=== PATIENT | female | born 1990 | race American Indian/Alaskan Native ===

== ENCOUNTER 2019-01-30 10:24 | Emergency (ER) | payer MEDICAID ==
[2019-01-30 10:55] VITALS: BP 106/59
[2019-01-30] MEDS ORDERED: DECADRON IM ONE (11:30)
--- NOTE | 2019-01-30 11:32 | Emergency Department Report ---
Minor Respiratory - HPI Chief Complaint: Upper Respiratory Infection Stated Complaint: COUGH Time Seen by Provider: 01/30/19 11:14 Duration: 3 Days Pain Location: Chest Severity: mild Minor Respiratory: Yes Able to Tolerate Fluids, Yes Cough, Yes Sick Contacts, No Rhinorrhea, No Sore Throat, No Ear Pain, No Hemoptysis, No Chest Pain, No Shortness of Breath, No Fever Other History: Patient is a pleasant 28-year-old -[place] female comes to the ER today complaining of cold-like symptoms since last Monday. She denies fever. She denies sputum. She denies chills. There is no chest pain or shortness of breath. No ear pain no throat pain. Patient comes to the ER with her small child with similar symptoms. Past medical history none. Home medications none ED Review of Systems ROS: Stated complaint: COUGH Other details as noted in HPI Comment: All other systems reviewed and negative Constitutional: see HPI Eyes: as per HPI. denies: eye pain ENT: as per HPI Respiratory: see HPI, cough Cardiovascular: denies: dyspnea on exertion Gastrointestinal: denies: vomiting Genitourinary: denies: urgency Musculoskeletal: denies: back pain Skin: denies: as per HPI Neurological: denies: headache Psychiatric: denies: depression Hematological/Lymphatic: denies: easy bleeding ED Past Medical Hx - Past Medical History Previous Medical History?: No Additional medical history: Scabies - Surgical History Past Surgical History?: Yes Additional Surgical History: - Social History Smoking Status: Current Every Day Smoker Substance Use Type: Alcohol, Marijuana - Medications Home Medications: Home Medications Medication Instructions Recorded Confirmed Last Taken Type Amoxicillin 500 mg PO BID #20 capsule 01/30/19 Unknown Rx Benzonatate [Tessalon Perles] 100 mg PO Q12H PRN #20 capsule 01/30/19 Unknown Rx Cetirizine HCl [ZyrTEC] 10 mg PO DAILY #30 capsule 01/30/19 Unknown Rx Fluticasone [Flonase] 1 spray NS QDAY #1 bottle 01/30/19 Unknown Rx Minor Respiratory Exam - Exam General: Vital signs noted. No distress. Alert and acting appropriately. HEENT: Yes Moist Mucous Membranes, Yes Rhinorrhea, No Pharyngeal Erythema, No Pharyngeal Exudates, No Conjuctival Injection, No Frontal Tenderness, No Maxillary Tenderness Ear: Neither TM Bulge, Neither TM Erythema, Neither EAC Pain, Neither EAC Discharge Neck: Yes Supple, No Adenopathy Lungs: Yes Good Air Exchange, Yes Cough (HR 90 ON EXAM), No Wheezes, No Ronchi, No Stridor, No Labored Respirations, No Retractions, No Use of Accessory Muscles, No Other Abnormal Lung Sounds Heart: Yes Regular, No Murmur Abdomen: Yes Normal Bowel Sounds, No Tenderness, No Peritoneal Signs Skin: No Rash, No Edema Neurologic: Alert and oriented, no deficits. Musculoskeletal: Unremarkable. ED Course Vital Signs 01/30/19 10:53 Temperature 98.1 F Pulse Rate 93 H Respiratory 18 Rate Blood Pressure 106/59 O2 Sat by Pulse 99 Oximetry ED Medical Decision Making - Medical Decision Making SIMPLE URTI COLD LIKE SYMPTOMS NO FEVER NO SPUTUM LIKELY ALLERGIC COMPONENT Patient has been sent home with symptom relief. However, she's been given a prescription for antibiotics that she's been instructed not to start taking for 48 hours and to only start at that point if she is not feeling better or worsening. Critical care attestation.: If time is entered above; I have spent that time in minutes in the direct care of this critically ill patient, excluding procedure time. ED Disposition Clinical Impression: Viral respiratory illness Disposition: DC-01 TO HOME OR SELFCARE Is pt being admited?: No Does the pt Need Aspirin: No Condition: Stable Instructions: Upper Respiratory Infection (ED) Additional Instructions: REST HYDRATE WELL WITH WATER MEDS ORDERED TODAY START AMOX IN 48 HOURS IF YOU ARE NOT FEELING BETTER OR IF YOU ARE WORSENING FOLLOW UP PCP REFERRAL BELOW MOTRIN OR TYLENOL FOR PAIN OR FEVER DIET TOLERATED ACTIVITY TOLERATED Prescriptions: Amoxicillin 500 mg PO BID #20 capsule Fluticasone [Flonase] 1 spray NS QDAY #1 bottle Benzonatate [Tessalon Perles] 100 mg PO Q12H PRN #20 capsule PRN Reason: Cough Cetirizine HCl [ZyrTEC] 10 mg PO DAILY #30 capsule Referrals: [facility] [Outside] - 3-5 Days Time of Disposition: 11:30
== END 2019-01-30 11:40 | disposition home or self-care (01) ==
LOC: ED 10:24
DX: J98.8 Other specified respiratory disorders (principal); F17.200 Nicotine dependence, unspecified, uncomplicated; F12.10 Cannabis abuse, uncomplicated; B97.89 Other viral agents as the cause of diseases classified elsewhere
CPT/HCPCS: 96372; 99282; J1100

== ENCOUNTER 2019-10-21 14:37 | Emergency (ER) | payer MEDICAID ==
--- NOTE | 2019-10-21 14:51 | Emergency Department Report ---
Blank Doc - Documentation Documentation: 29-year-old female that presents with URI symptoms. This initial assessment/diagnostic orders/clinical plan/treatment(s) is/are subject to change based on patient's health status, clinical progression and re- assessment by fellow clinical providers in the ED. Further treatment and workup at subsequent clinical providers discretion. Patient/guardians urged not to elope from the ED as their condition may be serious if not clinically assessed and managed. Initial orders include: 1- Patient sent to [facility] for further evaluation and treatment 2- CXR
--- NOTE | 2019-10-21 15:33 | XRay Report ---
CHEST 2 VIEWS INDICATION / CLINICAL INFORMATION: cough. COMPARISON: None available. FINDINGS: SUPPORT DEVICES: None. HEART / MEDIASTINUM: No significant abnormality. LUNGS / PLEURA: No significant pulmonary or pleural abnormality. No pneumothorax. ADDITIONAL FINDINGS: No significant additional findings. IMPRESSION: 1. No acute finding. Signer Name: Toby Valencia MD Signed: 10/21/2019 3:29 PM Workstation Name: [id number]
--- NOTE | 2019-10-21 17:00 | Emergency Department Report ---
Chief Complaint: Upper Respiratory Infection Stated Complaint: COLD/CANT EAT Time Seen by Provider: 10/21/19 14:50 - HPI History of Present Illness: 29-year-old female that presents with URI symptoms for 1 week. She reports that she has an appetite but everything tastes nasty. Patient has taken nothing for her cold symptoms because everything tastes nasty. Patient admits to a cough no fever or headache. - Exam Vital Signs: Vital Signs 10/21/19 14:50 Temperature 98.4 F Pulse Rate 69 Respiratory 18 Rate Blood Pressure 105/70 O2 Sat by Pulse 99 Oximetry Physical Exam: Gen: alert oriented NAD Cardic: regular rate and rhythm no murmurs appreciated Resp: Clear to auscultation bilateral no wheezing no rales or rhonchi. Abdomen: Soft nontender nondistended normal bowel sounds. Mini neuro: strengh 4/5 all extrimities, Alert and oriented time 3 Crainal nerve II-IIX intact MSE screening note: Focused history and physical exam performed. Due to findings the following was ordered: Chest x-ray is negative. Discussed with patient she needs to take [id number] medications to treat her symptoms. Discussed the patient is to increase her appetite advance her diet as tolerated. ED Disposition for MSE Disposition: Z MED SCREENING EXAM-LEFT Is pt being admited?: No Does the pt Need Aspirin: No Condition: Stable Instructions: Viral Syndrome (ED) Additional Instructions: Patient to take [id number] medications to treat her symptoms. Discussed the patient is to increase her appetite advance her diet as tolerated. Referrals: [facility] [Outside] - 3-5 Days
[2019-10-21 17:08] VITALS: BP 103/63
== END 2019-10-21 17:06 | disposition left against medical advice (07) ==
LOC: ED 14:37
DX: J06.9 Acute upper respiratory infection, unspecified (principal); R63.0 Anorexia
CPT/HCPCS: 71046

== ENCOUNTER 2020-04-08 22:05 | Outpatient (CLI) | payer MEDICAID ==
[2020-04-08 22:55] VITALS: BP 112/58
[2020-04-08] MEDS ORDERED: LACTATED RINGERS 1,000 ML IV ONE (23:06)
[2020-04-08] MEDS ORDERED: ACETAMINOPHEN 500 MG TAB PO ONE (23:46)
[2020-04-09 00:41] LABS: Basophils % (Auto) 0.2 % (0.0-1.8); Eosinophils # (Auto) 0.1 K/mm3 (0.0-0.4); Hematocrit 29.4 % (30.3-42.9); Lymphocytes # (Auto) 1.9 K/mm3 (1.2-5.4); Lymphocytes % (Auto) 18.2 % (13.4-35.0); Mean Corpuscular HGB Conc 34 % (30-34); Mean Corpuscular Volume 81 fl (79-97); Monocytes # (Auto) 0.6 K/mm3 (0.0-0.8); Monocytes % (Auto) 5.8 % (0.0-7.3); Platelet Count 163 K/mm3 (140-440); Red Blood Count 3.62 M/mm3 (3.65-5.03); Red Cell Distribution Width 13.7 % (13.2-15.2)
--- NOTE | 2020-04-09 01:05 | Ultrasound Report ---
Examination: Ultrasound Obstetrical Limited, 04/09/2020 INDICATION: Evaluate well being and cervical length. COMPARISON: No relevant prior studies are available for comparison. FINDINGS: There is a single living intrauterine with the head in the transverse position with head to the maternal right. The heart rate is 153 beats per minute. The cervix has a funneled appearance and measures 1.6 cm in length. IMPRESSION: Limited obstetrical ultrasound with details given above. Signer Name: Yisel Sheppard MD Signed: 04/09/2020 1:01 AM Workstation Name: [email or web address]
[2020-04-09 01:10] LABS: Hepatitis C Virus Antibody Non-Reactive (NonReactive)
[2020-04-09] MEDS ORDERED: LACTATED RINGERS 1,000 ML IV ONE (01:33)
[2020-04-09 01:36] LABS: Bilirubin,Urine NEG (Negative); Blood,Urine LG (Negative); Color,Urine Straw (Yellow); Mucus,Urine FEW /HPF; Protein,Urine <15 mg/dL mg/dL (Negative); Urobilinogen,Urine < 2.0 mg/dL (<2.0)
[2020-04-09 01:44] LABS: Amphetamine Screen,Urine PRESUMPTIVE NEGATIVE; Benzodiazepines Screen,Urine PRESUMPTIVE NEGATIVE; Cannabinoid Screen,Urine PRESUMPTIVE NEGATIVE; Cocaine Screen,Urine PRESUMPTIVE NEGATIVE; Methadone Screen,Urine PRESUMPTIVE NEGATIVE; Opiate Screen,Urine PRESUMPTIVE NEGATIVE
== END 2020-04-09 03:25 | disposition home or self-care (01) ==
LOC: TRG 22:05 → APU 22:09 → TRG 04-09 03:25
PROVIDERS: ATTEND Obstetrics & Gynecology
DX: O26.852 Spotting complicating pregnancy, second trimester (principal); O62.9 Abnormality of forces of labor, unspecified; O99.332 Smoking (tobacco) complicating pregnancy, second trimester; F17.200 Nicotine dependence, unspecified, uncomplicated; Z3A.20 20 weeks gestation of pregnancy
CPT/HCPCS: 36415; 59025; 76815; 80307; 81001; 85025; 86592; 86706; 86762; 86803; 86850; 86900; 86901; 87086; 87806; 96360; J7120; 96361

== ENCOUNTER 2020-04-09 16:24 | Inpatient (IN) | payer MEDICAID ==
[2020-04-09] MEDS ORDERED: DOCUSATE SODIUM 100 MG CAP PO PRN (16:42)
[2020-04-09] MEDS ORDERED: ACETAMINOPHEN 325 MG TAB PO PRN ×2 (16:42→23:21)
[2020-04-09] MEDS ORDERED: ONDANSETRON 4 MG/2 ML INJ IV PRN (16:42)
[2020-04-09] MEDS ORDERED: LACTATED RINGERS 1,000 ML IV SCH (17:00)
[2020-04-09] MEDS ORDERED: fentaNYL 100 MCG/2 ML INJ IV ONE ×2 (17:17→17:20)
--- NOTE | 2020-04-09 17:22 | History and Physical Report ---
History of Present Illness Date of examination: 04/09/20 (pt arrived by EMS c/o severe pain and vaginal bleeding) History of present illness: Pt states she has been bleeding and spotting since having sex on Monday. Was in Triage overnight and sent home. States pain got worse and bleeding more Called 911 to come in. EDC Confirmation: 08/21/2020 Gestational Age: 17 3/7 weeks Past History : 4 Term Births: 2 Premature Births: 0 Living Children: 2 Para: 2 Mult. Births: 0 Prev : 2 Aborta: 1 Elect. Ab: 0 Spont. Ab: 1 Ectopics: 0 # 1 Delivery date: 08/07/2006 Weeks Gestation: 41 Delivery type: Hours of labor: 20 Anesthesia type: epidural Delivery location: [place] Infant Sex: Male weight: 8-9 Name: Aubrey Comments: Failed induction # 2 Delivery date: 2014 Weeks Gestation: 8 Delivery type: SAB Comments: No D&C # 3 Delivery date: 12/30/2016 Weeks Gestation: 41 Delivery type: Repeat section Anesthesia type: spinal Delivery location: [place] Infant Sex: Female weight: 8-? Name: Rob Past Medical History: TOA hospitalized as teenager Past Surgical History: (2005) (2016) Family History Summary: Other Family Member - Has No Family History of Ovarvian Cancer - Entered On: 03/16/2020 Other Family Member - Has No Family History of Colon Cancer - Entered On: 03/16/2020 Other Family Member - Has No Family History of Breast Cancer - Entered On: 03/16/2020 Other Family Member - Has Family History of CVA or Stroke - Entered On: 03/16/2020 Social History: Marital Status: Single Children: 2 Occupation: Unemployed Smoking History: Patient currently smokes every day. 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 Infection History Hx of STD: gonorrhea HIV Risk Eval: no Hepatitis B Risk Eval: low risk Personal hx. of genital herpes: no Infection History Comments: Hospitalized for TOAs Genetic History Congenital Heart Defect: Mom: no Dad: no Nikolai Disease: Mom: no Dad: no Thalassemia Mom: no Dad: no Neural Tube Defect Mom: no Dad: no Down's Syndrome Mom: no Dad: no Cesar-Sachs Mom: no Dad: no Sickle Cell Disease/Trait Mom: no Dad: no Hemophilia Mom: no Dad: no Muscular Dystrophy Mom: no Dad: no Cystic Fibrosis Mom: no Dad: no [place] Chorea Mom: no Dad: no Mental Retardation Mom: no Dad: no Fragile X Mom: no Dad: no Other Genetic/Chromosomal Disorder Mom: no Dad: no Child w/other defect Mom: no Dad: no Enviromental Exposures Xray Exposure: no Medication, drug, or alcohol use since LMP: no Chemical/Other Exposure: no Exposure to Cat Liter: no Active Medications: None Current Allergies (reviewed today): No known allergies Past History - Obstetrical History Expected Date of Delivery: 08/21/20 Actual Gestation: 20 Week(s) 6 Day(s) : 4 Para: 2 (c/s X 2) Hx # Term Pregnancies: 2 Number of Pregnancies: 0 Spontaneous Abortions: 1 Induced : 0 Number of Living Children: 2 Medications and Allergies Allergies Allergy/AdvReac Type Severity Reaction Status Date / Time No Known Allergies Allergy Verified 01/30/19 10:26 Home Medications Medication Instructions Recorded Confirmed Last Taken Type Amoxicillin 500 mg PO BID #20 capsule 01/30/19 Unknown Rx Benzonatate [Tessalon Perles] 100 mg PO Q12H PRN #20 capsule 01/30/19 Unknown Rx Cetirizine HCl [ZyrTEC] 10 mg PO DAILY #30 capsule 01/30/19 Unknown Rx Fluticasone [Flonase] 1 spray NS QDAY #1 bottle 01/30/19 Unknown Rx Active Meds: Active Medications Acetaminophen (Tylenol) 650 mg PO Q4H PRN PRN Reason: Pain MILD(1-3)/Fever >100.5/CARDOZA Docusate Sodium (Colace) 100 mg PO Q12H PRN PRN Reason: Constipation Fentanyl (Sublimaze) 50 mcg IV ONCE ONE Stop: 04/09/20 17:18 Lactated Ringer's (Lactated Ringers) 1,000 mls @ 125 mls/hr IV DIRECT DEVANTE Multivitamins/Iron/Calcium ( Vitamin) 1 each PO QDAY DEVANTE Ondansetron HCl (Zofran) 4 mg IV Q6H PRN PRN Reason: Nausea And Vomiting - Vital Signs Vital signs: Vital Signs Temp Resp 98.5 F 20 04/09/20 17:03 04/09/20 17:03 Temp Pulse Resp BP Pulse Ox 98.5 F 87 20 115/75 04/09/20 17:03 04/09/20 17:06 04/09/20 17:03 04/09/20 17:06 - Physical Exam Breasts: Positive: deferred Cardiovascular: Regular rate, Normal S1, Normal S2 Lungs: Positive: Clear to auscultation Abdomen: Positive: normal appearance, soft, normal bowel sounds. Negative: distention, tenderness Genitourinary (Female): Positive: other (vaginal bleeding) Vulva: both: normal Vagina: Positive: normal moisture. Negative: discharge Cervix: Negative: lesion, discharge Uterus: Positive: normal size, normal contour Adnexa: both: normal Anus/Rectum: Positive: normal perianal skin, heme negative. Negative: rectal mass, hemorrhoids Extremities: Positive: normal Deep Tendon Reflex Grade: Normal +2 - Obstetrical FHR: auscultation normal Uterine Contraction Monitor Mode: External Cervical Dilatation: 1 (no presenting part palpated; stat US ordered) Cervical Effacement Percentage: 90 station: -5 Uterine Contraction Pattern: Irregular Uterine Tone Measurement Phase: Resting Uterine Contraction Intensity: Strong/Firm Results All other labs normal. all IOB labs drawn UDS Assessment and Plan 30yo @ 21 weeks Bleeding since Monday that worsened over the last several hours and she began to have severe pain. Prev c/s X [address] orders in EMR Dr Dhillon aware of pt. - Patient Problems (1) Cannabis abuse Onset Date: ~04/09/20 Current Visit: Yes Status: Acute Plan to address problem: UDS negative (2) Vaginal bleeding in Onset Date: ~04/09/20 Current Visit: Yes Status: Acute Plan to address problem: US done at bedside BOW in vagina Cervix 3 cm Vertex on cervix No evidence of abruption (3) 21 weeks gestation of Onset Date: ~04/09/20 Current Visit: Yes Status: Acute Plan to address problem: Discussed with pt the inevitable delivery and that due to GA baby is not expected to survive. Pt crying and c/o severe pain. IV meds given Will bolus for epidural
[2020-04-09 17:45] LABS: Bilirubin,Urine NEG (Negative); Blood,Urine NEG (Negative); Color,Urine Straw (Yellow); Protein,Urine <15 mg/dL mg/dL (Negative); Urobilinogen,Urine < 2.0 mg/dL (<2.0); WBC,Urine < 1.0 /HPF (0.0-6.0)
[2020-04-09] MEDS ORDERED: OXYTOCIN 20 UNIT/1000ML DRIP 20,000 MILLIUNITS/1,000 ML BAG IV ONE ×2 (17:50→21:13)
[2020-04-09 17:52] LABS: Amphetamine Screen,Urine PRESUMPTIVE NEGATIVE; Benzodiazepines Screen,Urine PRESUMPTIVE NEGATIVE; Cannabinoid Screen,Urine PRESUMPTIVE NEGATIVE; Cocaine Screen,Urine PRESUMPTIVE NEGATIVE; Methadone Screen,Urine PRESUMPTIVE NEGATIVE; Opiate Screen,Urine PRESUMPTIVE NEGATIVE
[2020-04-09] MEDS ORDERED: BUTORPHANOL 2 MG/1 ML INJ IV PRN (18:26)
[2020-04-09 18:28] LABS: Basophils % (Auto) 0.2 % (0.0-1.8); Eosinophils % (Auto) 0.2 % (0.0-4.3); Hematocrit 31.6 % (30.3-42.9); Hemoglobin 10.5 gm/dl (10.1-14.3); Mean Corpuscular HGB Conc 33 % (30-34); Mean Corpuscular Volume 82 fl (79-97); Monocytes # (Auto) 0.5 K/mm3 (0.0-0.8); Monocytes % (Auto) 4.5 % (0.0-7.3); Platelet Count 165 K/mm3 (140-440); Red Blood Count 3.86 M/mm3 (3.65-5.03); Red Cell Distribution Width 13.7 % (13.2-15.2)
[2020-04-09 18:50] LABS: Alanine Aminotransferase 9 units/L (7-56); Albumin 3.8 g/dL (3.9-5); BUN/Creatinine Ratio 15; Blood Urea Nitrogen 6 mg/dL (7-17); Hemolysis Index 3
[2020-04-09] MEDS ORDERED: hydrALAZINE 20 MG/1 ML INJ IV ONE (18:54)
[2020-04-09 18:55] LABS: Hepatitis C Virus Antibody Non-Reactive (NonReactive)
[2020-04-09] MEDS ORDERED: ePHEDrine SULFATE 50 MG/1 ML INJ ONE (19:11)
[2020-04-09] MEDS ORDERED: DEXMEDETOMIDINE 200 MCG/2 ML VIAL IV ONE (19:11)
--- NOTE | 2020-04-09 19:13 | Ultrasound Report ---
ULTRASOUND OBSTETRIC Indication: bleeding @ 21weeks Findings: There is a single intrauterine . BPD = 4.7 cm = 20 weeks, 2 day(s). Head circumference = 18.2 cm = 20 weeks, 4 day(s). Abdominal circumference = 16.1 cm = 21 weeks, 1 day(s). Femur length = 3.5 cm = 21 weeks, 0 day(s). Overall estimated sonographic age = 20 weeks, 5 day(s). heart rate is 143 beats per minute. Estimated weight is 394 grams position is cephalic. Cervix appears open with bulging sec. movement is present. Placenta is anterior and grade 0 . Amniotic fluid volume appears normal. Maternal adnexa appear normal. Impression: 1. Single living intrauterine with estimated sonographic age of 20 weeks, 5 day(s). 2. Cervix is open with a bulging gestational sac. Signer Name: Tylor Wong MD Signed: 04/09/2020 7:09 PM Workstation Name: [id number]
--- NOTE | 2020-04-09 19:22 | Progress Note ---
Assessment and Plan Anesthesia called for epidural SVE 5,100, - Patient Problems (1) Cannabis abuse Onset Date: ~04/09/20 Current Visit: Yes Status: Acute (2) Vaginal bleeding in Onset Date: ~04/09/20 Current Visit: Yes Status: Acute (3) 21 weeks gestation of Onset Date: ~04/09/20 Current Visit: Yes Status: Acute Subjective - Subjective Date of service: 04/09/20 (pt requests epidural) Principal diagnosis: IUP @ 21 weeks inevitable delivery Interval history: Pt states she has been bleeding and spotting since having sex on Monday. Was in Triage overnight and sent home. States pain got worse and bleeding more Called 911 to come in. EDC Confirmation: 08/21/2020 Gestational Age: 17 3/7 weeks Past History : 4 Term Births: 2 Premature Births: 0 Living Children: 2 Para: 2 Mult. Births: 0 Prev : 2 Aborta: 1 Elect. Ab: 0 Spont. Ab: 1 Ectopics: 0 # 1 Delivery date: 08/07/2006 Weeks Gestation: 41 Delivery type: Hours of labor: 20 Anesthesia type: epidural Delivery location: [place] Infant Sex: Male weight: 8-9 Name: Aubrey Comments: Failed induction # 2 Delivery date: 2014 Weeks Gestation: 8 Delivery type: SAB Comments: No D&C # 3 Delivery date: 12/30/2016 Weeks Gestation: 41 Delivery type: Repeat section Anesthesia type: spinal Delivery location: [place] Infant Sex: Female weight: 8-? Name: Rob Past Medical History: TOA hospitalized as teenager Past Surgical History: (2005) (2016) Family History Summary: Other Family Member - Has No Family History of Ovarvian Cancer - Entered On: 03/16/2020 Other Family Member - Has No Family History of Colon Cancer - Entered On: 03/16/2020 Other Family Member - Has No Family History of Breast Cancer - Entered On: 03/16/2020 Other Family Member - Has Family History of CVA or Stroke - Entered On: 03/16/2020 Social History: Marital Status: Single Children: 2 Occupation: Unemployed Smoking History: Patient currently smokes every day. 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 Infection History Hx of STD: gonorrhea HIV Risk Eval: no Hepatitis B Risk Eval: low risk Personal hx. of genital herpes: no Infection History Comments: Hospitalized for TOAs Genetic History Congenital Heart Defect: Mom: no Dad: no Nikolai Disease: Mom: no Dad: no Thalassemia Mom: no Dad: no Neural Tube Defect Mom: no Dad: no Down's Syndrome Mom: no Dad: no Cesar-Sachs Mom: no Dad: no Sickle Cell Disease/Trait Mom: no Dad: no Hemophilia Mom: no Dad: no Muscular Dystrophy Mom: no Dad: no Cystic Fibrosis Mom: no Dad: no [place] Chorea Mom: no Dad: no Mental Retardation Mom: no Dad: no Fragile X Mom: no Dad: no Other Genetic/Chromosomal Disorder Mom: no Dad: no Child w/other defect Mom: no Dad: no Enviromental Exposures Xray Exposure: no Medication, drug, or alcohol use since LMP: no Chemical/Other Exposure: no Exposure to Cat Liter: no Active Medications: None Current Allergies (reviewed today): No known allergies Patient reports: contractions Objective - Vital Signs Vital Signs: Vital Signs - 12hr 04/09/20 04/09/20 04/09/20 17:03 17:06 18:40 Temperature 98.5 F Pulse Rate 87 88 Respiratory 20 Rate Blood Pressure 115/75 109/59 - Exam Breasts: deferred Cardiovascular: Regular rate Lungs: Normal air movement Abdomen: Present: normal appearance, soft. Absent: distention, tenderness Uterus: Present: normal FHR: auscultation normal Uterine Contraction Monitor Mode: External Cervical Dilatation: 5 (BBOW) Cervical Effacement Percentage: 100 station: -1 Uterine Contraction Pattern: Regular Uterine Tone Measurement Phase: Resting Uterine Contraction Intensity: Strong/Firm Extremities: normal Deep Tendon Reflex Grade: Normal +2 - Labs Labs: Abnormal Labs 04/09/20 04/09/20 18:00 18:00 MCH 27 L Lymph % (Auto) 10.0 L Lymph # 1.0 L Seg Neutrophils % 85.1 H Seg Neutrophils # 8.9 H Sodium 135 L Carbon Dioxide 21 L BUN 6 L Creatinine 0.4 L Total Protein 6.1 L Albumin 3.8 L Laboratory Results - last 24 hr 04/09/20 04/09/20 04/09/20 17:15 17:15 18:00 WBC 10.4 RBC 3.86 Hgb 10.5 Hct 31.6 MCV 82 MCH 27 L MCHC 33 RDW 13.7 Plt Count 165 Lymph % (Auto) 10.0 L [place] % (Auto) 4.5 Eos % (Auto) 0.2 Baso % (Auto) 0.2 Lymph # 1.0 L [place] # 0.5 Eos # 0.0 Baso # 0.0 Seg Neutrophils % 85.1 H Seg Neutrophils # 8.9 H Sodium Potassium Chloride Carbon Dioxide Anion Gap BUN Creatinine Estimated GFR BUN/Creatinine Ratio Glucose Calcium Total Bilirubin AST ALT Alkaline Phosphatase Total Protein Albumin Albumin/Globulin Ratio Urine Color Straw Urine Turbidity Clear Urine pH 6.0 Ur Specific [place] 1.010 Urine Protein <15 mg/dl Urine Glucose (UA) Neg Urine Ketones 20 Urine Blood Neg Urine Nitrite Neg Urine Bilirubin Neg Urine Urobilinogen < 2.0 Ur Leukocyte Esterase Neg Urine WBC (Auto) < 1.0 Urine RBC (Auto) 2.0 U Epithel Cells (Auto) 1.0 Urine Opiates Screen Presumptive negative Urine Methadone Screen Presumptive negative Ur Barbiturates Screen Presumptive negative Ur Phencyclidine Scrn Presumptive negative Ur Amphetamines Screen Presumptive negative U Benzodiazepines Scrn Presumptive negative Urine Cocaine Screen Presumptive negative U Marijuana (THC) Screen Presumptive negative Drugs of Abuse Note Disclamer Syphilis IgG Antibody Hep Bs Antigen Hepatitis C Antibody HIV 1&2 Antibody Rapid HIV P24 Antigen Rubella IgG Antibody 04/09/20 04/09/20 04/09/20 18:00 18:00 18:00 WBC RBC Hgb Hct MCV MCH MCHC RDW Plt Count Lymph % (Auto) [place] % (Auto) Eos % (Auto) Baso % (Auto) Lymph # [place] # Eos # Baso # Seg Neutrophils % Seg Neutrophils # Sodium 135 L Potassium 3.6 Chloride 100.3 Carbon Dioxide 21 L Anion Gap 17 BUN 6 L Creatinine 0.4 L Estimated GFR > 60 BUN/Creatinine Ratio 15 Glucose 87 Calcium 9.0 Total Bilirubin 0.20 AST 12 ALT 9 Alkaline Phosphatase 48 Total Protein 6.1 L Albumin 3.8 L Albumin/Globulin Ratio 1.7 Urine Color Urine Turbidity Urine pH Ur Specific [place] Urine Protein Urine Glucose (UA) Urine Ketones Urine Blood Urine Nitrite Urine Bilirubin Urine Urobilinogen Ur Leukocyte Esterase Urine WBC (Auto) Urine RBC (Auto) U Epithel Cells (Auto) Urine Opiates Screen Urine Methadone Screen Ur Barbiturates Screen Ur Phencyclidine Scrn Ur Amphetamines Screen U Benzodiazepines Scrn Urine Cocaine Screen U Marijuana (THC) Screen Drugs of Abuse Note Syphilis IgG Antibody Hep Bs Antigen Non-reactive Hepatitis C Antibody Non-reactive HIV 1&2 Antibody Rapid HIV P24 Antigen Rubella IgG Antibody Immune 04/09/20 04/09/20 18:00 18:00 WBC RBC Hgb Hct MCV MCH MCHC RDW Plt Count Lymph % (Auto) [place] % (Auto) Eos % (Auto) Baso % (Auto) Lymph # [place] # Eos # Baso # Seg Neutrophils % Seg Neutrophils # Sodium Potassium Chloride Carbon Dioxide Anion Gap BUN Creatinine Estimated GFR BUN/Creatinine Ratio Glucose Calcium Total Bilirubin AST ALT Alkaline Phosphatase Total Protein Albumin Albumin/Globulin Ratio Urine Color Urine Turbidity Urine pH Ur Specific [place] Urine Protein Urine Glucose (UA) Urine Ketones Urine Blood Urine Nitrite Urine Bilirubin Urine Urobilinogen Ur Leukocyte Esterase Urine WBC (Auto) Urine RBC (Auto) U Epithel Cells (Auto) Urine Opiates Screen Urine Methadone Screen Ur Barbiturates Screen Ur Phencyclidine Scrn Ur Amphetamines Screen U Benzodiazepines Scrn Urine Cocaine Screen U Marijuana (THC) Screen Drugs of Abuse Note Syphilis IgG Antibody Non-reactive Hep Bs Antigen Hepatitis C Antibody HIV 1&2 Antibody Rapid Non react HIV P24 Antigen Non react Rubella IgG Antibody
--- NOTE | 2020-04-09 19:29 | Anesthesia Consultation ---
Anesthesia Consult and Med Hx Date of service: 04/09/20 - Airway Anesthetic Teeth Evaluation: Good ROM Head & Neck: Adequate Mental/Hyoid Distance: Adequate Mallampati Class: Class II Intubation Access Assessment: Probably Good - Pulmonary Exam CTA: Yes - Cardiac Exam Cardiac Exam: RRR - Pre-Operative Health Status ASA Pre-Surgery Classification: ASA3 Proposed Anesthetic Plan: Epidural - Pulmonary Hx Smoking: Yes - Other Systems Hx Alcohol Use: No Hx Substance Use: Yes
--- NOTE | 2020-04-09 19:31 | Progress Note ---
Labor Epidural - Labor Epidural Start Time: 19:00 Stop Time: 19:05 Performed by:: BONNIE DIOR Procedure: Patient is requesting epidural for labor pain. H&P, and labs reviewed. Procedure explained, questions answered, consent obtained. Patient in sitting position with blood pressure cuff and pulse ox on and working. Timeout performed immediately before start of procedure. Sterile betadine prep/drape. 3 mL 1% lidocaine skin wheal at L[3]-L[4]. 18-gauge Touhy epidural needle advanced to [id number] with saline at [7] cm. Epidural dexmedetomidine [30] mcg administered. Epidural catheter advanced to [12] cm, negative aspiration for blood and csf, negative test dose 3 ml 1.5% lidocaine with epinephrine. Sterile steri-strips and tegaderm applied, followed by tape reinforcement. Patient tolerated procedure well.
[2020-04-09] MEDS: ePHEDrine SULFATE 50 MG/1 ML INJ IV PRN ×2 (19:32→19:37)
[2020-04-09] MEDS ORDERED: fentaNYL-BUPIV 2 MCG/ML-0.125% 200 MCG/100 ML BAG EPIDURAL ONE (20:18)
[2020-04-09] MEDS ORDERED: NALOXONE 2 MG/2 ML INJ IV PRN (21:51)
[2020-04-09] MEDS ORDERED: fentaNYL-BUPIV 2 MCG/ML-0.125% 200 MCG/100 ML BAG EPIDURAL SCH (22:00)
--- NOTE | 2020-04-09 23:14 | Procedure Note ---
OB Delivery Note - Delivery Date of Delivery: 04/09/20 Program Coordinator: CAREN ROBERTS Estimated blood loss: 200cc - Vaginal Delivery presentation: vertex Delivery position: OP Intrapartum events: labor-<37 weeks, bleeding site-undetermine Delivery induction: none Delivery monitor: external uterine Route of delivery: Delivery placenta: spontaneous Delivery cord: 3 umbilical vessels Episiotomy: none Delivery laceration: none Anesthesia: epidural Delivery comments: Pt called out from room c/o increasing pressure and pain. SVE C,C,+2 live born extremely female baby. Pt declined to see or hold baby. Baby received of 5/5 anticipating demise. Wgt 13oz EBL 200 Placenta delivered complete and intact. Pitocin IVFs. Sent to pathology. Mom remains in LDR. Very emotional. All concerns addressed. - Infant A at 1 minute: 5 at 5 minutes: 5 Gender: Female (wgt 13oz)
[2020-04-09] MEDS ORDERED: MAGNESIUM HYDROXIDE (MOM) ORAL LIQD UDC PO PRN (23:21)
[2020-04-09] MEDS ORDERED: diphenhydrAMINE 25 MG CAP PO PRN (23:21)
[2020-04-09] MEDS ORDERED: PROMETHAZINE 25 MG TAB PO PRN (23:21)
[2020-04-09] MEDS ORDERED: WITCH HAZEL/ GLYCERIN PAD TP PRN (23:21)
[2020-04-09] MEDS ORDERED: LANOLIN/ZINC/DIMETHICONE (LANSINOH) 7 GM TP PRN (23:21)
[2020-04-09] MEDS ORDERED: IBUPROFEN 600 MG TAB PO SCH (23:45)
[2020-04-10] MEDS ORDERED: OXYTOCIN 20 UNIT/1000ML DRIP 20 UNITS/1,000 ML BAG IV SCH (01:00)
[2020-04-10] MEDS ORDERED: MEASLES, MUMPS & RUBELLA 12,500 UNIT/0.5 ML VACCINE SUB-Q ONE (06:00)
[2020-04-10] MEDS ORDERED: DIPHtheria,PERTUSSIS(ACELL),TETANUS VACCINE/PF 0.5 ML VIAL IM ONE (06:00)
--- NOTE | 2020-04-10 07:55 | Discharge Summary ---
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 Would like to see her baby. Passing flatus, ambulating, and voiding okay. O: VSS. Fundus firm, minimal bleeding noted. Adequate I&O's. H/H 8.6/26.1 A: 30 y.o. s/p infant @ 21 wks, demise. P: Discharge home with instructions. To schedule a visit at 4 weeks. Condition at discharge: Good Disposition: [id number] TO HOME OR SELFCARE Plan - Provider Discharge Summary Activity: routine, no sex for 6 weeks, no heavy lifting 4 weeks, no strenuous exercise Diet: routine Instructions: routine Additional instructions: [] Smoking cessation referral if applicable(refer to patient education folder for contact #) [] Refer to [facility] Booklet Call your doctor immediately for: * Fever > 100.5 * Heavy vaginal bleeding ( >1 pad per hour) * Severe persistent headache * Shortness of breath * Reddened, hot, painful area to leg or breast * Drainage or odor from incision. * Keep incision clean and dry at all times and follow doctor's instructions regarding bathing/showering - Follow up plan Follow up: PRIMARY CARE, [Primary Care Provider] - 7 Days SHERYL JACOBS CNM [Advanced Practice Nurse] - 05/08/20 (Sorry for your loss!!! Please schedule a visit in the office in 4 weeks. If you have any questions or concerns please do not hesitate to call the office.) Forms: [facility] Discharge Summary
[2020-04-10] MEDS ORDERED: PRENATAL VIT27-FE FUMARATE-FOLIC ACID VIT TAB PO SCH (10:00)
[2020-04-10] MEDS ORDERED: medroxyPROGESTERone ACETATE 150 MG/ML SYRINGE IM ONE (10:00)
[2020-04-10 11:31] LABS: Hematocrit 26.1 % (30.3-42.9); Hemoglobin 8.6 gm/dl (10.1-14.3)
[2020-04-10 14:59] VITALS: BP 98/54
== END 2020-04-10 16:13 | disposition home or self-care (01) | DRG 775 ==
LOC: TRG 16:24 → APU 16:25 → LD 17:03 → TRG 17:03 → OB 04-10 01:25
PROVIDERS: ADMIT Obstetrics & Gynecology; ATTEND Obstetrics & Gynecology
PROC: 10E0XZZ Delivery of Products of Conception, External Approach (ICD-10-PCS; principal; 2020-04-09)
PROC: 3E0R3BZ Introduction of Anesthetic Agent into Spinal Canal, Percutaneous Approach (ICD-10-PCS; 2020-04-09)
PROC: 00HU33Z Insertion of Infusion Device into Spinal Canal, Percutaneous Approach (ICD-10-PCS; 2020-04-09)
PROC: 3E0234Z Introduction of Serum, Toxoid and Vaccine into Muscle, Percutaneous Approach (ICD-10-PCS; 2020-04-10)
PROC: 3E0134Z Introduction of Serum, Toxoid and Vaccine into Subcutaneous Tissue, Percutaneous Approach (ICD-10-PCS; 2020-04-10)
DX: O60.12X0 Preterm labor second trimester with preterm delivery second trimester, not applicable or unspecified (principal); O99.334 Smoking (tobacco) complicating childbirth; F17.200 Nicotine dependence, unspecified, uncomplicated; O99.324 Drug use complicating childbirth; F12.10 Cannabis abuse, uncomplicated; Z82.3 Family history of stroke; Z3A.20 20 weeks gestation of pregnancy; Z37.1 Single stillbirth; Z23 Encounter for immunization
CPT/HCPCS: 36415; 59025; 76815; 76816; 80053; 80307; 81001; 85014; 85018; 85025; 86592; 86706; 86762; 86803; 86850; 86900; 86901; 87086; 87806; 88305; 96360; 96361; G0378; J0595; J1050; J2590; J3010; J3490; J7120

== ENCOUNTER 2021-05-21 23:30 | Emergency (ER) | payer MEDICAID | END 2021-05-21 23:35 | disposition left against medical advice (07) | LOC: ED 23:30 | DX: R10.9 Unspecified abdominal pain (principal); Z53.21 Procedure and treatment not carried out due to patient leaving prior to being seen by health care provider ==